=== PATIENT | male | born 1985 | race Caucasian/White ===

== ENCOUNTER → 2020-03-17 17:57 | Outpatient (BNVA) | payer OTHER, SELFPAY | PROVIDERS: Family Provider Nurse Practitioner Family; PCP Nurse Practitioner Family; Visit Provider Nurse Practitioner Family | DX: Z20.828 Contact with and (suspected) exposure to other viral communicable diseases (principal) | CPT/HCPCS: 87635 ==

== ENCOUNTER 2025-02-05 11:34 | Emergency (ER) | payer OTHER, SELFPAY ==
[2025-02-05 11:44] VITALS: BP 111/60; PULSE 72; RESP 16; TEMP 36.8; O2SAT 97; BMI 27.6
--- NOTE | 2025-02-05 11:59 | ED_ITS ---
HPI - General Adult 2 General: Chief complaint: General Medical Stated complaint: multiple bee stings, n/v Time Seen by Provider: 02/05/25 11:36 Source: patient Mode of arrival: ambulatory Limitations: no limitations History of Present Illness: Patient is a 39-year-old male who presents the emergency department complaining of bee stings that occurred yesterday while working in his shed. States that the stings were primarily to the right thigh and in the groin region, he does not report any known allergies but states that overnight there was a large purpleish lesion to his medial right knee that has slowly gotten more painful and redness and swelling has spread towards his groin. Notes subjective fevers overnight, no fever at this time and overall vital stable. No signs or symptoms of anaphylaxis, breathing normal and blood pressure normal. States has been taking Benadryl with minimal relief, no shortness of breath or chest pain. No tongue or throat swelling. Overall nontoxic-appearing but does have large rash to medial right knee. He is also noting associated nausea and vomiting. MD complaint: multiple bee stings, N/V Onset (ago): day(s) Associated symptoms: Reports nausea, rash and vomiting; Deny chest pain, dyspnea, headache(s) or palpitations Related Data Previous Rx's ?Medication ?Instructions ?Recorded clindamycin HCl 300 mg capsule 300 mg PO BID 7 days #1 4 caps 02/05/25 prednisone 10 mg tablets in a dose 10 mg PO DIRECTE D #21 ea 02/05/25 pack Allergies Allergy/AdvReac Type Severity Reaction Status Date / Time Penicillins Allergy ALGY-Anaphy Verified 03/17/20 17:07 laxis Review of Systems 2 General: Reports: 10 or more systems reviewed and unremarkable except in HPI and below Const: Denies: fever(s), chills or fatigue Eyes: Denies: change in vision ENMT: Denies: throat pain, ear or mastoid pain or nasal discharge Card: Denies: chest pain, palpitations, swelling of feet/ankles or lightheadedness Resp: Denies: dyspnea, productive cough or wheezing GI: Reports: nausea and vomiting; Denies: abdominal pain, diarrhea or constipation : Denies: flank pain, difficulty urinating, dysuria or urinary frequency Musc: Denies: neck pain, back pain or joint pain Skin/Breast: Reports: rash, erythema and new lesions (multiple bee stings) Neuro: Denies: headache(s), numbness in extremities or weakness in extremities PFSH ED 2 PFSH: Social History Smoking and tobacco/nicotine status: current every day tobacco/nicotine user e- cigarettes E-Cigarette Details: vaporizer device and with nicotine E-cig/vape details: uses approx. 3 times/day Alcohol intake: never Substance/Drug Use: never Physical Exam 2 Const: COMMON NORMALS: no acute distress, average body habitus, patient oriented x3, no limitations, healthy appearing, alert and well nourished O THER: Nontoxic-appearing HENMT: COMMON NORMALS: normocephalic and atraumatic HEAD & SCALP: n ormocephalic and atraumatic Neck/C-Spine: COMMON NORMALS: full ROM, no lymphadenopathy, supple and no meningeal signs Resp: COMMON NORMALS: normal respiratory effort, No use of accessory muscles and clear to auscultation bilaterally AUSCULTATION: clear to auscultation bilaterally Cardio: COMMON NORMALS: regular rate and regular rhythm RATE: regular rate RHYTHM: regular rhythm Extremity: COMMON NORMALS: full ROM and capillary refill normal Neuro: COMMON NORMALS: patient oriented x3 SENSORIUM/ORIENTATION: Yes alert MENINGEAL SIGNS: Yes no meningeal signs Skin: COMMON NORMALS: turgor normal NARRATIVE SKIN EXAM: Red/purple well-demarcated and easily blanchable rash to right medial knee. Not significantly warm to the touch. No evidence of petechial bleeding. GENERAL SKIN EXAM: turgor normal Course 2 Vital Signs: Vital signs: Vital Signs Temperature 98.3 F 02/05/25 11:44 Pulse Rate 72 02/05/25 11:44 Respiratory Rate 16 02/05/25 11:44 Blood Pressure 111/60 02/05/25 12:09 Pulse Oximetry 100 02/05/25 12:09 Oxygen Delivery Me thod Room Air 02/05/25 12:09 [facility] - General Adult Medical Decision Making Patient presents with large, purple, blanchable area at the site of a bee sting that occurred yesterday, associate with fevers overnight subjective. Vitals currently stable. Labs reveal mild thrombocytopenia. Most likely diagnosis localized inflammatory reaction of the bee sting with possible early cellulitis. Differential includes toxin mediated soft tissue reaction, early necrotizing infection which is less likely given stable vitals and blanchable lesion, and immune mediated reaction. The patient will be managed with close observation, symptomatic care, and empiric oral antibiotics. Clindamycin for MRSA risk. Labs included CBC and CMP, obtained and informed him to follow-up with primary care for repeat of these if he continues to have symptoms. He also has been counseled to return promptly if the lesion is expands, becomes nonblanchable and black, his pain worsens, fevers are persistent, or any other systemic symptoms develop. He endorsed understanding. Also will be started on prednisone taper. Encouraged to take Benadryl at home for symptoms. Lab Data 02/05/25 12:07 02/05/25 12:07 Laboratory Results WBC 8.89 10^3/uL (3.29-11.43) 02/05/25 12:07 RBC 5.08 10^6/uL (3.85-5.65) 02/05/25 12:07 Hgb 13.60 g/dL (11.27-16.99) 02/05/25 12:07 Hct 40.0 % (37-53) 02/05/25 12:07 MCV 78.7 fl (82-101) L 02/05/25 12:07 MCH 26.8 pg (27-33) L 02/05/25 12:07 MCHC 34.0 g/dL (30-55) 02/05/25 12:07 RDW 13.3 % (12.1-15.1) 02/05/25 12:07 Plt Count 105 10^3/cmm (157-399) L 02/05/25 12:07 MPV 11.1 fL (7.4-10.4) H 02/05/25 12:07 Neut % (Auto) 89.6 % 02/05/25 12:07 Lymph % (Auto) 3.5 % 02/05/25 12:07 [place] % (Auto) 5.4 % 02/05/25 12:07 Eos % (Auto) 1.0 % 02/05/25 12:07 Baso % (Auto) 0.2 % 02/05/25 12:07 Neut # (Auto) 7.96 10^3/uL (1.8-7.7) H 02/05/25 12:07 Lymph # (Auto) 0.3 10^3/uL (0.8-4.8) L 02/05/25 12:07 [place] # (Auto) 0.5 10^3/uL (0.2-0.9) 02/05/25 12:07 Eos # (Auto) 0.1 10^3/uL (0.0-0.8) 02/05/25 12:07 Baso # (Auto) 0.0 10^3/uL (0.0-0.1) 02/05/25 12:07 Nucleated RBC % (auto) 0 % 02/05/25 12:07 Nucleated RBCs # 0.0 /100WBC 02/05/25 12:07 Sodium 135 mmol/L (136-145) L 02/05/25 12:07 Potassium 4.1 mmol/L (3.5-5.1) 02/05/25 12:07 Chloride 100 mmol/L (98-107) 02/05/25 12:07 Carbon Dioxide 23 mmol/L (22-29) 02/05/25 12:07 Anion Gap 16.1 (5-19) 02/05/25 12:07 BUN 12 mg/dL (6-20) 02/05/25 12:07 Creatinine 1.0 mg/dL (0.7-1.2) 02/05/25 12:07 GFR Calculation 82.3 mL/min (90-130) L 02/05/25 12:07 Glucose 108 mg/dL (65-115) 02/05/25 12:07 Calculated Osmolality 280 mOsm/kg (285-295) L 02/05/25 12:07 Calcium 9.0 mg/dL (8.5-10.5) 02/05/25 12:07 Total Bilirubin 2.1 mg/dL (0.15-1.2) H 02/05/25 12:07 AST 15 U/L (0-40) 02/05/25 12:07 ALT 11 U/L (0-41) 02/05/25 12:07 Alkaline Phosphatase 79 U/L (40-130) 02/05/25 12:07 Total Protein 7.2 g/dL (6.6-8.7) 02/05/25 12:07 Albumin 4.4 g/dL (3.5-5.2) 02/05/25 12:07 Globulin 2.8 g/dL (1.3-4.6) 02/05/25 12:07 No radiology studies performed this visit Discharge Plan Discharge Patient Disposition: Home Clinical Impression: Allergic reaction to venom Cellulitis Qualifiers: Site of cellulitis: extremity Site of cellulitis of extremity: lower extremity Laterality: right Qualified Code(s): L03.115 - Cellulitis of right lower limb Condition: Stable Prescriptions: New clindamycin HCl 300 mg capsule 300 mg PO BID 7 Days Qty: 14 0RF prednisone 10 mg tablets,dose pack 10 mg PO DIRECTED Qty: 21 0RF Rx Instructions: see taper instructions 6 tablets on day 1, 5 tablets on day 2, 4 tablets on day 3, 3 tablets on day 4, 2 tablets on day 5, and 1 tablet a day 6. P.o. 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 - Complete the full course, even if symptoms improve earlier. - Common side effects: diarrhea, nausea, abdominal pain. - If severe diarrhea develops (especially with blood or mucus), discontinue and seek medical attention due to risk of Clostridioides difficile infection.[1] https://Coherent Path/jordan/article-lookup/doi/10.1093/jordan/mni598 [2] https://jamanetwork.com/sharon urnals/stuart/fullarticle/10.1001/stuart.2016.8825?utm_source=openevidence&utm_mediu m=referral [3] https://doi.org/10.4802/l84-0216 - Prednisone taper - Take as prescribed. - Take with food to minimize gastrointestinal upset. - Do not stop abruptly; follow the prescribed taper schedule to avoid adrenal insufficiency.[1] https://Coherent Path/jordan/article- lookup/doi/10.1093/jordan/ycl685 [4] https://www.nejm.org/doi/f ull/10.1056/ESGEjz8669670 Supportive Care: - Elevate the affected leg as much as possible to reduce swelling. - Apply cool compresses to the area for comfort. - Keep the area clean and dry. - Avoid scratching or manipulating the rash or sting site. Allergic Reaction Management: - If pruritus or mild swelling persists, oral antihistamines (e.g., cetirizine or loratadine) may be used as needed for symptom relief.[4] https://www.nejm.org/doi/full/10.1056/ONZDti1489327 - Large local reactions may take several days to resolve; corticosteroids can help reduce inflammation.[4] https://www.nejm.org/doi/full/10.1056/HPETxp3999203 Monitoring and Follow-up: - Pro the edge of redness/swelling with a pen to monitor for progression. - Expect improvement in pain, redness, and swelling within 48?72 hours of starting antibiotics and steroids.[1] https://Usabilla.HashTip.com/jordan/article- lookup/doi/10.1093/jordan/zmy557 [2] https://jamanetwork.com/sharon urnals/stuart/fullarticle/10.1001/stuart.2016.8825?utm_source=openevidence&utm_mediu m=referral - Schedule a follow-up appointment in 3?5 days or sooner if symptoms worsen. Strict Return Precautions: Return to the emergency department or contact your healthcare provider immediately if any of the following occur: - Rapidly increasing redness, swelling, or pain at the site - Development of blisters, black or purple discoloration, or skin breakdown - High fever (>38.5?C/101.3?F), chills, or rigors - New or worsening shortness of breath, chest tightness, wheezing, or swelling of the lips, tongue, or throat (signs of anaphylaxis) - Dizziness, fainting, or confusion - Inability to tolerate oral medications due to vomiting - Severe diarrhea (especially if bloody or associated with abdominal pain) - No improvement or worsening of symptoms after 48?72 hours of therapy Prevention and Education: - Avoid future exposure to bee stings; consider referral to an allergist/immunologist physician for evaluation of venom hypersensitivity and possible immunotherapy if indicated.[4] https://www.nejm.org/doi/full/10.1056/DHQMea5198539 - Inspect skin regularly for breaks or wounds, and keep skin moisturized to prevent fissures. - Address predisposing factors for cellulitis recurrence, such as chronic edema or skin conditions, as appropriate.[1] https://Coherent Path/jordan/article- lookup/doi/10.1093/jordan/ene258 [2] https://jamanetwork.com/sharon urnals/stuart/fullarticle/10.1001/stuart.2016.8825?utm_source=openevidence&utm_mediu m=referral Contact Information: - For urgent concerns, call the clinic or present to the nearest emergency department. References: - Infectious Diseases Society of [place] guidelines for cellulitis management[1] https://Coherent Path/jordan/article-lookup/doi/10.1093/jordan/zmo189 - [facility] review of cellulitis[2] https://jamanetwork.com/journals/stuart/fullarticle/10.1001/stuart.2016.8825?utm_sou rce=openevidence&utm_medium=referral - [facility] review of hymenoptera sting hypersensitivity[4] https://www.nejm.org/doi/full/10.1056/ATBYod5852676 References * Practice Guidelines for the Diagnosis and Management of Skin and Soft Tissue Infections: 2014 Update by the Infectious Diseases Society of [place] https://SoftRun.Lvmama/jordan/article-lookup/doi/10.1093/jordan/xtw184 . Abhinav HAMMONDS, Maik AL, Hansel HF, et al. Clinical Infectious Diseases : An Official Publication of the Infectious Diseases Society of [place]. 2014;59(2):147-59. doi:10.1093/jordan/cqf359. * Cellulitis: A Review https://jamanetwork.com/journals/stuart/fullarticle/10.1001/stuart.2016.8825?utm_s ource=openevidence&utm_medium=referral . Serg IBRAHIM, Miguel Merlos. STUART. 2016;316(3):325-37. doi:10.1001/stuart.2016.8825. * Appropriate Use of Short-Course Antibiotics in Common Infections: Best Practice Advice From the [employer] https://doi.org/10.7326/h51-3211 . Emilie Garcia, Nolberto Butt, Elvia Ware, et al. * Hymenoptera-Sting Hypersensitivity https://www.nejm.org/doi/full/10.1056/ETBGcb0546564 . Jessi TB, Shalom AW. The [employer] Journal of Medicine. 2014;370(15):1432-9. doi:10.1056/UCNLwv5163082. Print Language: Polish Coding Level of Care Code ED Bale Opener for Charlee Myers
[2025-02-05] MEDS: diphenhydrAMINE 50 mg/mL SDV 1mL IVP (12:04)
[2025-02-05 12:09] VITALS: BP 111/60; O2SAT 100
[2025-02-05 12:17] LABS: Hematocrit 40.0 % (37-53); Hemoglobin 13.60 g/dL (11.27-16.99); Mean Corpuscular HGB Conc 34.0 g/dL (30-55); Mean Corpuscular Hemoglobin 26.8 pg (27-33); Mean Corpuscular Volume 78.7 fl (82-101); Nucleated Red Blood Cells % 0 %; Platelet Count 105 10^3/cmm (157-399); Red Blood Count 5.08 10^6/uL (3.85-5.65); White Blood Count 8.89 10^3/uL (3.29-11.43)
[2025-02-05 12:27] LABS: Alanine Aminotransferase 11 U/L (0-41); Albumin Level 4.4 g/dL (3.5-5.2); Alkaline Phosphatase 79 U/L (40-130); Anion Gap 16.1 (5-19); Aspartate Amino Transferase 15 U/L (0-40); Blood Urea Nitrogen 12 mg/dL (6-20); Calcium 9.0 mg/dL (8.5-10.5); Carbon Dioxide 23 mmol/L (22-29); Chloride 100 mmol/L (98-107); Creatinine Clr Calc Pharmacy 98.4401; Globulin 2.8 g/dL (1.3-4.6); Glucose 108 mg/dL (65-115); Osmolality Calculated 280 mOsm/kg (285-295); Potassium 4.1 mmol/L (3.5-5.1); Sodium 135 mmol/L (136-145); Total Protein 7.2 g/dL (6.6-8.7)
[2025-02-05 12:54] VITALS: BP 111/60; PULSE 61; RESP 17; O2SAT 97
== END 2025-02-05 12:54 | disposition home or self-care (01) ==
PROVIDERS: Emergency Provider Physician Assistant
DX: T63.441A Toxic effect of venom of bees, accidental (unintentional), initial encounter (principal); X58.XXXA Exposure to other specified factors, initial encounter; L03.115 Cellulitis of right lower limb; F17.290 Nicotine dependence, other tobacco product, uncomplicated
CPT/HCPCS: 80053; 85025; 96374; 96375; 99284; J1100; J1200; J1885

== ENCOUNTER 2025-02-07 16:36 | Emergency (ER) | payer OTHER, SELFPAY ==
[2025-02-07 16:40] VITALS: BP 141/84; PULSE 67; RESP 16; TEMP 36.7; O2SAT 100; BMI 19.8
--- NOTE | 2025-02-07 17:29 | ED_ITS ---
HPI - Skin/Abscess/Foreign Bdy 2 General: Chief complaint: Skin/Abscess/Foreign Body Stated complaint: bee sting on saterday Time Seen by Provider: 02/07/25 16:50 History of Present Illness: Patient is 39-year-old male that was cleaning out the ceiling tiles in the garage when a beehive, and insects fell on him. He is unsure what stung or bit him to his right medial knee and proximal leg. There is some surrounding redness. He states compliance to the clindamycin that he was placed on Thursday, 2 days ago. This occurred 3 days ago, on Thursday. He is also on Medrol Dosepak. There is a large white patch, with superficial black/burgundy areas. These are nondistinct macular in nature. Associated symptoms: Reports nausea and vomiting; Deny chills or fever(s) Related Data Previous Rx's ?Medication ?Instructions ?Recorded clindamycin HCl 300 mg capsule 300 mg PO BID 7 days #1 4 caps 02/05/25 prednisone 10 mg tablets in a dose 10 mg PO DIRECTE D #21 ea 02/05/25 pack clindamycin HCl 300 mg capsule 300 mg PO Q8H 10 days # 30 caps 02/07/25 (Cleocin HCl) methocarbamol 750 mg tablet 750 mg PO Q8H PRN muscle s pasm #30 02/07/25 tabs methylprednisolone 4 mg tablets in See Rx Instructions PO .COMPLEX 02/07/25 a dose pack (Medrol (Gerardo)) #21 ea Allergies Allergy/AdvReac Type Severity Reaction Status Date / Time Penicillins Allergy ALGY-Anaphy Verified 03/17/20 17:07 laxis Review of Systems 2 General: Reports: 10 or more systems reviewed and unremarkable except in HPI and below Const: Denies: fever(s), chills or fatigue Eyes: Denies: change in vision ENMT: Denies: throat pain, ear or mastoid pain or nasal discharge Card: Denies: chest pain, palpitations, swelling of feet/ankles or lightheadedness Resp: Denies: dyspnea, productive cough or wheezing GI: Reports: nausea and vomiting; Denies: abdominal pain, diarrhea or constipation : Denies: flank pain, difficulty urinating, dysuria or urinary frequency Musc: Denies: neck pain, back pain or joint pain Skin/Breast: Reports: rash, erythema, skin tenderness and new lesions (Multiple blotchy black superficial areas in the right proximal medial lower) Neuro: Denies: headache(s), numbness in extremities or weakness in extremities PFSH ED 2 PFSH: Social History Smoking and tobacco/nicotine status: current every day tobacco/nicotine user e- cigarettes E-Cigarette Details: vaporizer device and with nicotine E-cig/vape details: uses approx. 3 times/day Alcohol intake: never Substance/Drug Use: never Physical Exam 2 Const: COMMON NORMALS: no acute distress, average body habitus, patient oriented x3, no limitations, healthy appearing, alert and well nourished O THER: Nontoxic-appearing HENMT: COMMON NORMALS: normocephalic and atraumatic HEAD & SCALP: n ormocephalic and atraumatic Neck/C-Spine: COMMON NORMALS: full ROM, no lymphadenopathy, supple and no meningeal signs Resp: COMMON NORMALS: normal respiratory effort, No use of accessory muscles and clear to auscultation bilaterally AUSCULTATION: clear to auscultation bilaterally Cardio: COMMON NORMALS: regular rate and regular rhythm RATE: regular rate RHYTHM: regular rhythm GI: COMMON NORMALS: Normal to inspection, nondistended, normoactive bowel sounds present and Soft to palpation PALPATION: Yes Soft to palpation : COMMON NORMALS: Yes no CVA tenderness BLADDER/KIDNEY EXAM: Yes no CVA tenderness Back/Pelvis: COMMON NORMALS: no CVA tenderness Extremity: COMMON NORMALS: full ROM and capillary refill normal Neuro: COMMON NORMALS: patient oriented x3 SENSORIUM/ORIENTATION: Yes alert MENINGEAL SIGNS: Yes no meningeal signs Skin: COMMON NORMALS: turgor normal NARRATIVE SKIN EXAM: Black/purple well-demarcated and easily blanchable distinct areas within the white patch to right medial knee. Not significantly warm to the touch. Minimal redness around the 1 area SKIN IMAGES (MALE): 1. white patch, inside with small superficial areas of necrosis, with minimal prox redness, light in nature GENERAL SKIN EXAM: turgor normal Course 2 Vital Signs: Vital signs: Vital Signs Temperature 98.0 F 02/07/25 16:40 Pulse Rate 67 09/09/25 16:40 Respiratory Rate 16 02/07/25 16:40 Blood Pressure 141/84 02/07/25 16:40 Pulse Oximetry 100 02/07/25 16:40 Oxygen Delivery Me thod Room Air 02/07/25 16:40 MDM - Skin/Abscess/Foreign Bdy Medicial Decision Making Patient is 39-year-old gentleman that was moving to the area, cleaning some things out of the garage when an insect patch of bees, and possibly spiders fell onto him. His major issue with pain is his right medial knee. This is not significantly looking for a cellulitis, may be mild localized cellulitis is all I would note at this time. Will increase his dose to 3 times daily clindamycin, and extend his Medrol Dosepak. Also for pain control he was given Anthony x 1, Norflex, and ketorolac. Medical Records I reviewed the patient's medical records. No radiology studies performed this visit Discharge Plan Discharge Patient Disposition: Home Clinical Impression: Insect bite Qualifiers: Encounter type: subsequent encounter Site of insect bite: lower leg Laterality: right Qualified Code(s): S80.861D - Insect bite (nonvenomous), right lower leg, subsequent encounter Condition: Stable Prescriptions: New clindamycin HCl [Cleocin HCl] 300 mg capsule 300 mg PO Q8H 10 Days Qty: 30 0RF methocarbamol 750 mg tablet 750 mg PO Q8H PRN (Reason: muscle spasm) Qty: 30 0RF methylprednisolone [Medrol (Gerardo)] 4 mg tablets,dose pack See Rx Instructions .ROUTE .COMPLEX Qty: 21 0RF Rx Instructions: for 6 days No Action clindamycin HCl 300 mg capsule 300 mg PO BID 7 Days Qty: 14 0RF prednisone 10 mg tablets,dose pack 10 mg PO DIRECTED Qty: 21 0RF Rx Instructions: see taper instructions 6 tablets on day 1, 5 tablets on day 2, 4 tablets on day 3, 3 tablets on day 4, 2 tablets on day 5, and 1 tablet a day 6. P.o. Discharge Orders: Discharge ED (Routine); Ordered 02/07/25 Ordered By: Clemencia Bustos Referrals: Douglas Monreal, [facility] [Nurse Practitioner, Family Practice] - 1-3 days Discharge Diet: Usual diet Discharge Activity: Resume usual activity Patient Instructions: Insect Bite or Sting (ED), Opioid Safety, Pain Management, Patient Portal & Humberto Instructions Activity Restrictions/Additional Instructions: - Change her clindamycin to 3 times a day. Your extended course has been sent to the pharmacy - Additional Medrol Dosepak has been added. You may not be able to pick this up until your other 1 is completed, however continue the Medrol Dosepak as directed - You may apply topical Benadryl or hydrocortisone. - Your muscle relaxer was sent to the pharmacy. Caution on sedation side effects. - Follow-up with Douglas Monrela. Referral has been placed. - Return to ED if you do have worsening redness, fevers, chills, fever greater than 100.4 ?F specifically - To reduce the histamine response, obtain an antihistamine long-acting [id number]: Brand names are Guerita/fexofexine, Claritin/loratidine, Xyzal/levocetirizine, Zyrtec/cetirizine. Generic is on the back of these, and generic would be just fine as a substitute. Utilize Pepcid/famotidine. Both of these twice daily to reduce histamine response. - Tylenol/ibuprofen for pain Stand Alone Forms: Work/School Release Print Language: Nepali Coding Level of Care Code ED Burial Vault Maker for Charlee Myers
[2025-02-07] MEDS: orphenadrine 30 mg/mL Inj 2 mL 60 MG IM (18:00)
[2025-02-07] MEDS: HYDROcodone-acetaminophen 10-325 mg Tablet 1 TAB PO (18:00)
== END 2025-02-07 18:22 | disposition home or self-care (01) ==
PROVIDERS: Emergency Provider Physician Assistant
DX: S80.861D Insect bite (nonvenomous), right lower leg, subsequent encounter (principal); W57.XXXA Bitten or stung by nonvenomous insect and other nonvenomous arthropods, initial encounter; F17.290 Nicotine dependence, other tobacco product, uncomplicated
CPT/HCPCS: 96372; 99284; J1885; J2360; J9999

== ENCOUNTER → 2025-02-16 08:50 | Outpatient (BNVA) | payer OTHER, SELFPAY | PROVIDERS: Visit Provider Clinical Nurse Specialist Adult Health | DX: T63.331S Toxic effect of venom of brown recluse spider, accidental (unintentional), sequela (principal); M62.838 Other muscle spasm | CPT/HCPCS: 73562 ==